=== PATIENT | male | born 1960 | race American Indian/Alaskan Native ===

== ENCOUNTER 2018-02-25 09:30 | Emergency (ER) | payer OTHER ==
[2018-02-25] MEDS ORDERED: ZOFRAN ODT PO ONE (11:48)
--- NOTE | 2018-02-25 11:49 | Emergency Department Report ---
HPI - General Chief Complaint: Nausea/Vomiting/Diarrhea Time Seen by Provider: 02/25/18 11:36 - HPI HPI: 58 year-old male presents to the emergency department with a complaint of a 5 day history of upper abdominal pain, nausea, vomiting and diarrhea. Patient says that he has been having vomiting and diarrhea "all morning." He previously tried one of his sisters acid reflux medications without much relief. He denies any past medical history. No recent travel or sick contacts at home. He does not have a primary care physician. He is a tobacco smoker but denies any illicit drug use. He denies any dysuria, fever, back pain, chest pain, shortness of breath. ED Past Medical Hx - Past Medical History Previous Medical History?: No Hx Liver Disease: Yes (HEPATITIS C?) - Surgical History Past Surgical History?: Yes Additional Surgical History: RIGHT HAND/STAPH INFECTION - Social History Smoking Status: Current Every Day Smoker Substance Use Type: None - Medications Home Medications: Home Medications Medication Instructions Recorded Confirmed Last Taken Type diazePAM TAB [Valium] 5 mg PO TID PRN #15 tablet 03/27/15 Unknown Rx HYDROcodone/APAP 5-325 [[place] 1 each PO Q6HR PRN #12 tablet 02/25/18 Unknown Rx 5/325] Ondansetron [Zofran Odt] 4 mg PO Q8H PRN #10 tab.rapdis 02/25/18 Unknown Rx ED Review of Systems ROS: Stated complaint: STOMACH PAIN/DIARRHEA Other details as noted in HPI Comment: All other systems reviewed and negative Constitutional: denies: chills, fever Eyes: denies: eye pain, eye discharge, vision change ENT: denies: ear pain, throat pain Respiratory: denies: cough, shortness of breath, wheezing Cardiovascular: denies: chest pain, palpitations Gastrointestinal: abdominal pain, nausea, vomiting, diarrhea Genitourinary: denies: urgency, dysuria Musculoskeletal: denies: back pain, joint swelling, arthralgia Skin: denies: rash, lesions Neurological: denies: headache, weakness, paresthesias Physical Exam - Physical Exam Vital Signs: Vital Signs 02/25/18 09:33 Temperature 98.4 F Pulse Rate 97 H Respiratory 18 Rate Blood Pressure 153/94 O2 Sat by Pulse 98 Oximetry Physical Exam: GENERAL: The patient is well-developed well-nourished. HENT: Normocephalic. Atraumatic. Patient has moist mucous membranes. EYES: Extraocular motions are intact. Pupils equal reactive to light bilaterally. NECK: Supple. Trachea is midline. CHEST/LUNGS: Clear to auscultation. There is no respiratory distress noted. HEART/CARDIOVASCULAR: Regular. There is no tachycardia. There is no murmur. ABDOMEN: Abdomen is soft. There is some generalized abdominal tenderness to palpation but it is worst in the upper quadrants. No guarding.. Patient has normal bowel sounds. There is no abdominal distention. SKIN: Skin is warm and dry. NEURO: The patient is awake, alert, and oriented. The patient is cooperative. The patient has no focal neurologic deficits. The patient has normal speech and gait. MUSCULOSKELETAL: There is no tenderness or deformity. There is no evidence of acute injury. ED Course Vital Signs 02/25/18 09:33 Temperature 98.4 F Pulse Rate 97 H Respiratory 18 Rate Blood Pressure 153/94 O2 Sat by Pulse 98 Oximetry ED Medical Decision Making - Lab Data Result diagrams: 02/25/18 11:50 02/25/18 11:50 - Radiology Data Radiology results: report reviewed, image reviewed interpreted by me: Abdominal x-ray shows nonspecific nonobstructive bowel gas ULTRASOUND ABDOMEN LIMITED INDICATION: Upper abdominal pain. COMPARISON: None similar. FINDINGS: Right upper quadrant ultrasound demonstrates grossly unremarkable liver. At least 2 small mobile echogenic gallstones noted measuring 0.7 and 1.3 cm. Minimal gallbladder sludge as well. No pericholecystic fluid or definite positive sonographic Eagle's sign. Gallbladder wall thickness is 2.1 mm. CBD caliber is 5.4 mm. Imaged pancreatic neck and body suggests a 2.5 mm duct caliber. Pancreatic head and tail obscured due to bowel gas. Unremarkable IVC and nonaneurysmal abdominal aorta. Nonhydronephrotic right kidney measures 10 x 4.2 x 5.2 cm with cortical thickness 1.1 cm. CONCLUSION: Cholelithiasis and possible slight gallbladder sludge with few other findings, as described. Please correlate. Thank you for the opportunity to participate in this patient's care. Transcribed By: RS Dictated By: EUGENE WHITE MD Electronically Authenticated By: EUGENE WHITE MD Signed Date/Time: 02/25/18 9338 - Medical Decision Making Patient presents with a few days of abdominal pain, nausea and vomiting. Abdomen is soft, nontoxic, not rigid. Labs are unremarkable including no significant cytosis, normal electrolytes, normal belly labs. Vital signs stable throughout his ED course including being afebrile. Abdominal x-ray shows nonspecific nonobstructive bowel gas but appears to have shown potential for a gallstone. Ultrasound was done that does show cholelithiasis without cholecystitis. Patient was given a [place] and Zofran for his symptoms with some relief. I explained the labs, imaging results with the patient. He understands th need for outpatient follow-up with a general surgeon in case he needs elective outpatient cholecystectomy. However he understands to return to the emergency Department with any worsening of his symptoms, development of fever, or with any acute distress. - Differential Diagnosis cholelithiasis, cholecystitis, gastritis, colitis Critical Care Time: No Critical care attestation.: If time is entered above; I have spent that time in minutes in the direct care of this critically ill patient, excluding procedure time. ED Disposition Clinical Impression: Cholelithiasis Qualifiers: Cholelithiasis location: gallbladder Cholecystitis presence: without cholecystitis Biliary obstruction: without biliary obstruction Qualified Code(s) : K80.20 - Calculus of gallbladder without cholecystitis without obstruction Abdominal pain Qualifiers: Abdominal location: unspecified location Qualified Code(s): R10.9 - Unspecified abdominal pain Nausea and vomiting Qualifiers: Vomiting type: unspecified Vomiting Intractability: non-intractable Qualified Code(s): R11.2 - Nausea with vomiting, unspecified Disposition: DC-01 TO HOME OR SELFCARE Is pt being admited?: No Condition: Stable Instructions: Biliary Colic (ED), Abdominal Pain (ED) Additional Instructions: Please follow-up with your primary care physician in the next few days. I have given you a referral for a local general surgeon, Dr. Granger, to follow up regarding her gallstones. Try and stay away from foods that are spicy, fatty, greasy and avoid alcohol as this may exacerbate your abdominal pain and gallstone symptoms. Return to the emergency Department with any worsening of your symptoms including intractable vomiting, development of fever, or with any acute distress. You have been prescribed a medication that is sedating and therefore should not be taken prior to driving, working, and responsible for children and in no way should be mixed with alcohol of any quantity. Prescriptions: HYDROcodone/APAP 5-325 [[place] 5/325] 1 each PO Q6HR PRN #12 tablet PRN Reason: Pain Ondansetron [Zofran Odt] 4 mg PO Q8H PRN #10 tab.rapdis PRN Reason: Nausea Referrals: PRIMARY CAREMD [Primary Care Provider] - 3-5 Days VERO GRANGER MD [Staff Physician] - 3-5 Days Forms: Work/School Release Form(ED) Time of Disposition: 16:08
[2018-02-25 12:07] LABS: Basophils % (Auto) 0.6 % (0.0-1.8); Eosinophils # (Auto) 0.1 K/mm3 (0.0-0.4); Eosinophils % (Auto) 0.7 % (0.0-4.3); Hematocrit 41.5 % (35.5-45.6); Hemoglobin 13.9 gm/dl (11.8-15.2); Lymphocytes # (Auto) 1.6 K/mm3 (1.2-5.4); Lymphocytes % (Auto) 19.7 % (13.4-35.0); Mean Corpuscular HGB Conc 34 % (32-34); Mean Corpuscular Hemoglobin 30 pg (28-32); Mean Corpuscular Volume 90 fl (84-94); Monocytes # (Auto) 0.6 K/mm3 (0.0-0.8); Monocytes % (Auto) 7.3 % (0.0-7.3); Platelet Count 394 K/mm3 (140-440); Red Cell Distribution Width 14.4 % (13.2-15.2)
[2018-02-25 12:21] LABS: Alanine Aminotransferase 30 units/L (7-56); Albumin 4.3 g/dL (3.9-5); BUN/Creatinine Ratio 9; Blood Urea Nitrogen 8 mg/dL (9-20); Calcium 9.5 mg/dL (8.4-10.2); Hemolysis Index 0; Lipase 39 units/L (13-60)
[2018-02-25 13:19] LABS: Bilirubin,Urine NEG (Negative); Blood,Urine NEG (Negative); Color,Urine Yellow (Yellow); Mucus,Urine FEW /HPF; Protein,Urine <15 mg/dL mg/dL (Negative); RBC,Urine < 1.0 /HPF (0.0-6.0)
--- NOTE | 2018-02-25 13:47 | XRay Report ---
ABDOMEN RADIOGRAPHS INDICATION: Abdominal pain. COMPARISON: None similar. FINDINGS: Frontal abdominal radiographs suggest approximately 1.6 cm calcified gallstone projecting right paraspinal. Nonobstructive bowel gas pattern without other focal suspicious calcifications, pneumatosis or pneumoperitoneum. Clear visualized lung bases. Mild multilevel spinal degenerative changes. Few pelvic vascular calcifications. CONCLUSION: No acute abdominal radiographic abnormality with approximately 1.6 cm gallstone suspected, as described. Thank you for the opportunity to participate in this patient's care.
[2018-02-25] MEDS ORDERED: NORCO 5/325 PO ONE (15:19)
--- NOTE | 2018-02-25 15:28 | Ultrasound Report ---
ULTRASOUND ABDOMEN LIMITED INDICATION: Upper abdominal pain. COMPARISON: None similar. FINDINGS: Right upper quadrant ultrasound demonstrates grossly unremarkable liver. At least 2 small mobile echogenic gallstones noted measuring 0.7 and 1.3 cm. Minimal gallbladder sludge as well. No pericholecystic fluid or definite positive sonographic Eagle's sign. Gallbladder wall thickness is 2.1 mm. CBD caliber is 5.4 mm. Imaged pancreatic neck and body suggests a 2.5 mm duct caliber. Pancreatic head and tail obscured due to bowel gas. Unremarkable IVC and nonaneurysmal abdominal aorta. Nonhydronephrotic right kidney measures 10 x 4.2 x 5.2 cm with cortical thickness 1.1 cm. CONCLUSION: Cholelithiasis and possible slight gallbladder sludge with few other findings, as described. Please correlate. Thank you for the opportunity to participate in this patient's care.
[2018-02-25 16:16] VITALS: BP 150/90
== END 2018-02-25 16:15 | disposition home or self-care (01) ==
LOC: ED 09:30
DX: K80.20 Calculus of gallbladder without cholecystitis without obstruction (principal); F17.200 Nicotine dependence, unspecified, uncomplicated
CPT/HCPCS: 36415; 74019; 76705; 80053; 81001; 83690; 85025; Q0162